=== PATIENT | female | born 1965 | race Caucasian/White ===

== ENCOUNTER 2020-10-07 13:59 | Emergency (ER) | payer BC, OTHER ==
[2020-10-07 16:03] LABS: HEMOGLOBIN 13.8 gm/dl (12.3-15.3); RED BLOOD COUNT 4.55 M/UL (4.00-5.10); WHITE BLOOD COUNT 14.9 K/UL (4.5-11.0)
[2020-10-07 16:30] LABS: BUN/CREATININE RATIO 25 (0-10)
[2020-10-07] MEDS ORDERED: ONDANSETRON ODT4 MG SL (19:57)
[2020-10-07] MEDS ORDERED: FLOMAX 0.4 MG0.4 MG PO (19:57)
[2020-10-07] MEDS ORDERED: PERCOCET 5/325 T1 EA PO (20:01)
== END 2020-10-07 20:45 | disposition home or self-care (01) ==
LOC: ER1 13:59
PROVIDERS: Physician Assistant Medical
DX: N13.2 Hydronephrosis with renal and ureteral calculous obstruction (principal); N83.202 Unspecified ovarian cyst, left side; Z98.51 Tubal ligation status; Z88.0 Allergy status to penicillin; Z88.2 Allergy status to sulfonamides
CPT/HCPCS: 80053; 81001; 85025; 96374; 96375; 99284; J1885; J2270; J2405; J7030

== ENCOUNTER 2021-07-31 10:35 | Emergency (ER) | payer BC, OTHER ==
[~2021-07-31 10:35] MED LIST: FLOMAX 0.4 MG0.4 MG PO; ONDANSETRON ODT4 MG SL; PERCOCET 5/325 T1 EA PO
[2021-07-31 12:19] LABS: HEMOGLOBIN 12.7 gm/dl (12.3-15.3); RED BLOOD COUNT 4.27 M/UL (4.00-5.10); WHITE BLOOD COUNT 6.7 K/UL (4.5-11.0)
[2021-07-31 12:51] LABS: BUN/CREATININE RATIO 23 (0-10)
== END 2021-07-31 16:56 | disposition home or self-care (01) ==
LOC: ER1 10:35
PROVIDERS: Nurse Practitioner
DX: U07.1 COVID-19 (principal); Z23 Encounter for immunization; F17.290 Nicotine dependence, other tobacco product, uncomplicated; Z88.0 Allergy status to penicillin; Z88.2 Allergy status to sulfonamides
CPT/HCPCS: 71045; 80053; 82550; 82553; 83874; 84484; 85025; 85610; 93005; 99284; M0243

== ENCOUNTER 2021-08-02 18:54 | Emergency (ER) | payer BC, OTHER ==
[2021-08-02 19:25] LABS: HEMOGLOBIN 13.8 gm/dl (12.3-15.3); RED BLOOD COUNT 4.65 M/UL (4.00-5.10); WHITE BLOOD COUNT 5.4 K/UL (4.5-11.0)
[2021-08-02 20:00] LABS: BUN/CREATININE RATIO 17 (0-10)
== END 2021-08-02 22:10 | disposition home or self-care (01) ==
LOC: ER1 18:54
PROVIDERS: Student in an Organized Health Care Education/Training Program
DX: R00.2 Palpitations (principal); Z91.041 Radiographic dye allergy status
CPT/HCPCS: 71045; 80053; 82550; 82553; 83874; 84484; 85025; 85379; 86140; 93005; 99285; J7030

== ENCOUNTER 2022-02-02 15:54 | Emergency (ER) | payer BC, OTHER ==
[2022-02-02 17:22] LABS: HEMOGLOBIN 14.6 gm/dl (12.3-15.3); RED BLOOD COUNT 4.93 M/UL (4.00-5.10); WHITE BLOOD COUNT 9.6 K/UL (4.5-11.0)
== END 2022-02-02 18:45 | disposition admitted as inpatient to this hospital (09) ==
LOC: ER1 15:54
PROVIDERS: Student in an Organized Health Care Education/Training Program
DX: I48.0 Paroxysmal atrial fibrillation (principal); Z88.0 Allergy status to penicillin; Z88.2 Allergy status to sulfonamides
CPT/HCPCS: 71045; 80053; 81001; 82550; 82553; 84484; 85025; 93005; 99285; J0153; J2250

== ENCOUNTER 2022-02-24 14:28 | Emergency (ER) | payer BC ==
[2022-02-24 15:17] LABS: HEMOGLOBIN 13.3 gm/dl (12.3-15.3); RED BLOOD COUNT 4.49 M/UL (4.00-5.10); WHITE BLOOD COUNT 8.8 K/UL (4.5-11.0)
[2022-02-24 15:51] LABS: BUN/CREATININE RATIO 24 (0-10)
== END 2022-02-24 18:23 | disposition home or self-care (01) ==
LOC: ER1 14:28
PROVIDERS: Family Medicine
DX: R00.2 Palpitations (principal); R07.89 Other chest pain; I48.91 Unspecified atrial fibrillation; Z88.2 Allergy status to sulfonamides; Z88.0 Allergy status to penicillin
CPT/HCPCS: 71045; 80048; 82550; 82553; 84439; 84443; 84484; 85025; 93005; 99285

== ENCOUNTER → 2022-03-21 | Outpatient (CLI) | payer BC ==
[~2022-03-21] MED LIST changes: +ELIQUIS5 MG PO; +TOPROL XL25 MG PO
[2022-03-21 10:43] LABS: HEMOGLOBIN 12.4 gm/dl (12.3-15.3); RED BLOOD COUNT 4.23 M/UL (4.00-5.10); WHITE BLOOD COUNT 7.1 K/UL (4.5-11.0)
[2022-03-21 11:05] LABS: BUN/CREATININE RATIO 34 (0-10)
== END ==
LOC: ECHO 09:30
PROVIDERS: Internal Medicine Cardiovascular Disease
DX: I48.92 Unspecified atrial flutter (principal); R00.2 Palpitations; R06.02 Shortness of breath; R07.9 Chest pain, unspecified; I08.1 Rheumatic disorders of both mitral and tricuspid valves
CPT/HCPCS: ECHO; 36415; 80048; 85025; 93306

== ENCOUNTER → 2022-03-25 | Outpatient (CLI) | payer BC | LOC: CATH 09:56 | DX: I48.92 Unspecified atrial flutter (principal); I34.1 Nonrheumatic mitral (valve) prolapse; R07.89 Other chest pain; F17.200 Nicotine dependence, unspecified, uncomplicated; Z88.0 Allergy status to penicillin; Z88.2 Allergy status to sulfonamides | CPT/HCPCS: 93005; 93609; 93620; 93621; 99152; 99153; C1730; C1733; C1766; J1644; J2250; J3010; J7040 ==